=== PATIENT | female | born 1970 | race African-American/Black ===

== ENCOUNTER 2018-12-02 23:39 | Emergency (ER) | payer BC ==
[~2018-12-02] VITALS: Ht 167.6 cm; Wt 86.2 kg
[2018-12-02 23:50] VITALS: BP 158/111
--- NOTE | 2018-12-03 00:04 | PHYS DOC ---
Past Medical History Past Medical History: Hypertension, Other Past Surgical History: Tubal ligation Additional Past Surgical Histo: uterine ablation Alcohol Use: Occasionally Drug Use: None Adult General Chief Complaint Chief Complaint: SHOUDLER HPI HPI Patient is a 48 year old female who presents with states 2 days ago she awoke with right shoulder pain with that sharp and shooting and will radiate down the inner part of her arm down to the elbow. Patient states she does have some tingling down into the index finger on that right side. Patient rates her pain an 8 out of 10. Patient states she has limited range of motion. Patient can extend the arm at almost shoulder height for she says is too painful. Review of Systems Review of Systems Musculoskeletal: Denies back pain. Right shoulder joint pain [] All other systems were reviewed and found to be within normal limits, except as documented in this note. Allergies Allergies Allergies Coded Allergies Type Severity Reaction Last Updated Verified Avocado Allergy Unknown 10/12/13 No Uncoded Allergies Type Severity Reaction Last Updated Verified "prils" Allergy Severe Anaphylaxis 10/12/13 Physical Exam Physical Exam Constitutional: Well developed, well nourished, no acute distress, non-toxic appearance. [] Neck: Normal range of motion, no tenderness, supple, no stridor. [] Skin: Warm, dry, no erythema, no rash. [] Back: No tenderness, no CVA tenderness. [] Extremities: posterior shoulder tenderness, no cyanosis, no clubbing, Right shoulder ROM not intact, no edema. [] Neurologic: Alert and oriented X 3, normal motor function, normal sensory function, no focal deficits noted. [] Psychologic: Affect normal, judgement normal, mood normal. [] Current Patient Data Vital Signs Vital Signs Date Time Temp Pulse Resp B/P (MAP) Pulse Ox O2 Delivery O2 Flow Rate FiO2 12/02/18 23:50 98.2 89 16 158/111 (127) 99 Room Air 98.2 EKG EKG [] Radiology/Procedures Radiology/Procedures [] Course & Med Decision Making Course & Med Decision Making Patient is a 48 year old female who presents with states 2 days ago she awoke with right shoulder pain with that sharp and shooting and will radiate down the inner part of her arm down to the elbow. Patient states she does have some tingling down into the index finger on that right side. Patient rates her pain an 8 out of 10. Patient states she has limited range of motion. Patient can extend the arm at almost shoulder height for she says is too painful. There is tenderness to palpation to the posterior of the shoulder. There is no swelling in the extremity. Cap refill less than 3 seconds. Skin is pink warm and dry. Radial pulses strong and present. She states she has tried a heating pad and ibuprofen is not helping her pain. 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 Denies neck or back pain. Dr Lovell read the xray and there is no obvious acute findings. Dragon Disclaimer Dragon Disclaimer This electronic medical record was generated, in whole or in part, using a voice recognition dictation system. Departure Departure Impression: Primary Impression: Cervical radiculopathy Additional Impression: Cramp in muscle Disposition: 01 HOME, SELF-CARE Condition: STABLE Referrals: JUSTIN MEDEL MD (PCP) Patient Instructions: Cervical Radiculopathy, Muscle Cramps, Muscle Strain Additional Instructions: Follow up with primary care. Continue using heating pad and Ibuprofen. Take medication as prescribed. Scripts Ibuprofen (IBUPROFEN) 600 Mg Tablet 600 MG PO PRN Q6HRS PRN for INFLAMMATION, #20 TAB Prov: HANS SOTO APRN 12/03/18 Orphenadrine Citrate (ORPHENADRINE CITRATE) 100 Mg Tablet.er 1 TAB PO BID, #20 TAB Prov: HANS SOTO APRN 12/03/18 Hydrocodone/Apap 5-325 (NORCO 5-325 TABLET) 1 Each Tablet 1 TAB PO PRN Q6HRS PRN for PAIN, #10 TAB 0 Refills Prov: HANS SOTO APRN 12/03/18 Problem Qualifiers HANS SOTO APRN Dec 03, 2018 00:04
[2018-12-03] MEDS ORDERED: HYDR-3164 PO (00:27)
[2018-12-03] MEDS ORDERED: ORPH100T PO (00:27)
[2018-12-03] MEDS ORDERED: IBUP-1007 PO (00:27)
--- NOTE | 2018-12-03 06:33 | RAD ---
Study: SHOULDER 2+V RIGHT Indication: Pain. Limited range of motion. Comparison: None. Findings: Alignment is maintained at the AC and glenohumeral joints. No acute fracture. No advanced degenerative changes. The visualized right hemithoracic structures are unremarkable. Impression: No acute fracture or malalignment. Electronically signed by: ALEXA CROSS MD (12/03/2018 6:30 AM) [id number]
== END 2018-12-03 00:40 | disposition home or self-care (01) ==
LOC: ER 23:39
DX: M54.12 Radiculopathy, cervical region (principal); R25.2 Cramp and spasm; I10 Essential (primary) hypertension; Z91.018 Allergy to other foods
CPT/HCPCS: 73030; 99284

== ENCOUNTER 2018-12-05 00:47 | Emergency (ER) | payer BC ==
[~2018-12-05] VITALS: Ht 167.6 cm; Wt 86.2 kg
[~2018-12-05 00:47] MED LIST: HYDR-3164 PO; IBUP-1007 PO; ORPH100T PO
[2018-12-05 00:57] VITALS: BP 129/91
--- NOTE | 2018-12-05 01:28 | PHYS DOC ---
Past Medical History Past Medical History: Hypertension Past Surgical History: Tubal ligation Additional Past Surgical Histo: uterine ablation Alcohol Use: Occasionally Drug Use: None Adult General Chief Complaint Chief Complaint: UPPER EXTREMITY PAIN HPI HPI is a 48-year-old female who presents with complaint of right shoulder pain for the last few days. Patient states that at times it radiates down to her elbow as well. She rates pain at an 8 out of 10. She has been taking medications that were prescribed to her from 2 days ago. Patient states that she is seen no improvement in the pain. She denies any recent injury to her shoulder or her elbow. She states that pain had started after she had slept on her right shoulder.[] Review of Systems Review of Systems Constitutional: Denies fever or chills [] Respiratory: Denies cough or shortness of breath [] Cardiovascular: No additional information not addressed in HPI [] Musculoskeletal: Positive right shoulder pain [] Integument: Denies rash or skin lesions [] Current Medications Current Medications Current Medications Medications (Trade) Dose Ordered Sig/Marina Start Time Stop Time Status Last Admin Dose Admin Dexamethasone Sodium Phosphate (Decadron) 10 mg 1X ONCE 12/05/18 02:00 12/05/18 02:01 DC 12/05/18 01:56 10 MG Ketorolac Tromethamine (Toradol Im) 60 mg 1X ONCE 12/05/18 02:00 12/05/18 02:01 DC 12/05/18 01:56 60 MG Allergies Allergies Allergies Coded Allergies Type Severity Reaction Last Updated Verified benazepril Allergy Severe Anaphylaxis 12/05/18 Yes avocado Allergy Intermediate 12/05/18 No Physical Exam Physical Exam Constitutional: Well developed, well nourished, no acute distress, non-toxic appearance. [] Cardiovascular:Heart rate regular rhythm, no murmur [] Lungs & Thorax: Bilateral breath sounds clear to auscultation [] Skin: Warm, dry, no erythema, no rash. [] Extremities: Examination of right shoulder demonstrates significantly reduced range of motion due to reported pain. No external signs of trauma are noted. There is moderate tenderness to palpation overlying the lateral deltoid region at the insertion of the deltoid muscle as well as overlying subdeltoid bursa. [] Neurologic: Alert and oriented X 3, no focal deficits noted. [] Current Patient Data Vital Signs Vital Signs Date Time Temp Pulse Resp B/P (MAP) Pulse Ox O2 Delivery O2 Flow Rate FiO2 12/05/18 00:57 97.7 94 16 129/91 (104) 98 Room Air 97.7 EKG EKG [] Radiology/Procedures Radiology/Procedures [] Course & Med Decision Making Course & Med Decision Making Pertinent Labs and Imaging studies reviewed. (See chart for details) [] Dragon Disclaimer Dragon Disclaimer This electronic medical record was generated, in whole or in part, using a voice recognition dictation system. Departure Departure Impression: Primary Impression: Subdeltoid bursitis of right shoulder joint Disposition: HOME, SELF-CARE Condition: STABLE Referrals: JUSTIN MEDEL MD (PCP) Patient Instructions: Bursitis, Tendinitis Scripts Indomethacin (INDOMETHACIN) 50 Mg Capsule 1 CAP PO BID PRN for PAIN, #20 CAP 0 Refills with food Prov: LUCAS MCDONNELL Jr. DO 12/05/18 Methylprednisolone (MEDROL) 4 Mg Tab.ds.pk 1 PKG PO UD, #1 PKG Prov: LUCAS MCDONNELL Jr. DO 12/05/18 LUCAS MCDONNELL Jr. DO Dec 05, 2018 01:28
[2018-12-05] MEDS ORDERED: KETOROLAC 60 MG/2 ML VIAL. IM ONE (02:00)
[2018-12-05] MEDS ORDERED: DEXAMETHASONE SOD PHOS 20 MG/5 ML VIAL. IM ONE (02:00)
[2018-12-05] MEDS ORDERED: INDO50CA15 PO (02:08)
[2018-12-05] MEDS ORDERED: METH4TAB2 PO (02:08)
== END 2018-12-05 02:14 | disposition home or self-care (01) ==
LOC: ER 00:47
DX: M75.51 Bursitis of right shoulder (principal); I10 Essential (primary) hypertension; Z91.018 Allergy to other foods; Z88.8 Allergy status to other drugs, medicaments and biological substances
CPT/HCPCS: 96372; 99284; J1100; J1885